=== PATIENT | female | born 1980 | race Caucasian/White ===

== ENCOUNTER 2019-05-07 05:00 | Day surgery (SDC) | payer MEDICAID ==
[~2019-05-07] VITALS: Ht 154.9 cm; Wt 78.0 kg
[2019-05-07] MEDS ORDERED: LR 1,000 ML IV SCH (10:18)
[2019-05-07] MEDS ORDERED: MORPHINE 4 MG/ML INJ. SYRINGE IVP PRN (10:30)
[2019-05-07] MEDS ORDERED: SEVOFLURANE 15 MIN GAS INH ONE (10:30)
[2019-05-07] MEDS ORDERED: METOCLOPRAMIDE HCL 10 MG/2 ML VIAL IVP PRN (10:30)
[2019-05-07] MEDS ORDERED: ONDANSETRON HCL 4 MG/2 ML VIAL ONE (10:30)
[2019-05-07] MEDS ORDERED: NS 1000 ML IV.SOLN IV ONE (10:30)
[2019-05-07] MEDS ORDERED: fentaNYL CITRATE/PF 100 MCG/2 ML AMP ONE (10:30)
[2019-05-07] MEDS: MORPHINE 4 MG/ML INJ. SYRINGE IVP PRN ×2 (11:00→11:15)
[2019-05-07] MEDS ORDERED: MORPHINE 4 MG/ML INJ. SYRINGE ONE (11:14)
[2019-05-07 12:35] VITALS: BP_SYST 116
== END 2019-05-07 13:15 | disposition home or self-care (01) ==
LOC: SMU 05:00 → SDS 05:00
PROVIDERS: ATTEND Obstetrics & Gynecology
DX: N92.0 Excessive and frequent menstruation with regular cycle (principal); E66.3 Overweight; G89.29 Other chronic pain; D50.0 Iron deficiency anemia secondary to blood loss (chronic); E11.9 Type 2 diabetes mellitus without complications; I10 Essential (primary) hypertension; K21.9 Gastro-esophageal reflux disease without esophagitis; Z86.73 Personal history of transient ischemic attack (TIA), and cerebral infarction without residual deficits
CPT/HCPCS: 58563; 82962; 93005; J2270; J2405; J3010; J7030; J7120